=== PATIENT | male | born 1990 | race Caucasian/White ===

== ENCOUNTER → 2020-04-20 | Outpatient (CLI) | payer SELFPAY ==
[~2020-04-20] MED LIST: NAPR-243 PO
--- NOTE | 2020-04-20 17:01 | Diagnostic Imaging Report ---
Examination: Bilateral hips two views and pelvis was performed. HISTORY: Hip pain. COMPARISON: None available. FINDINGS: Pelvic alignment is normal. Hip joint spaces are normal. No fracture is seen. There is mildly decreased femoral head neck offset, left greater than right which can be seen with cam-type impingement. IMPRESSION: 1. No fracture. 2. Mildly decreased bilateral femoral head neck offset, left greater than right which can be seen with cam-type impingement. Dictated by: Dictated on workstation # [id number]
== END ==
LOC: RAD 16:05
PROVIDERS: ATTEND Chiropractor
DX: M99.01 Segmental and somatic dysfunction of cervical region (principal); M99.02 Segmental and somatic dysfunction of thoracic region; M99.03 Segmental and somatic dysfunction of lumbar region; M25.551 Pain in right hip; M25.552 Pain in left hip; R29.3 Abnormal posture
CPT/HCPCS: 73521